=== PATIENT | female | born 1930 | race Asian ===

== ENCOUNTER 2016-09-21 11:02 | Outpatient (CLI) | payer OTHER ==
[~2016-09-21 11:02] MED LIST: CIPRO500 MG PO; DICL1GEL2 TOP; GLIP5TAB65 PO; LABETALOL100 MG OR; LISITAB PO; TRAM50TA PO
[2016-09-21 12:05] LABS: POTASSIUM 4.7 mmol/L (3.6-5.2)
[2016-09-21 12:13] LABS: PLATELET COUNT 182 K/uL (152-353)
[2017-01-30] MEDS ORDERED: VALSARTAN80 MG PO (17:06)
[2017-01-30] MEDS ORDERED: NIFE30TA PO (17:07)
[2017-01-30] MEDS ORDERED: SUCRALFATE1 GM OR (17:07)
[2017-01-30] MEDS ORDERED: PANTPAK PO (17:07)
[2017-01-30] MEDS ORDERED: HYDR25TA60 PO (17:08)
== END 2016-09-21 19:15 | disposition home or self-care (01) ==
LOC: LABW 11:02
PROVIDERS: Internal Medicine Hematology & Oncology
DX: D64.9 Anemia, unspecified (principal)
CPT/HCPCS: 36415; 80053; 82728; 85007; 85027

== ENCOUNTER 2016-09-21 13:27 | Observation (INO) | payer OTHER ==
[~2016-09-21] VITALS: Ht 149.9 cm; Wt 79.9 kg
[2016-09-21 13:45] VITALS: BP 125/25; TEMP 97.7
--- NOTE | 2016-09-21 17:30 | NUR ---
CALL RECEIVED FROM LAB STATING BLOOD READY TO BE TRANSFUSED
[2016-09-21 17:44] VITALS: BP 173/42; TEMP 97.9; Ht 149.9 cm; Wt 79.9 kg
--- NOTE | 2016-09-21 18:10 | NUR ---
#1 PRBCS INFUSING. PT SITTING IN WHEELCHAIR DOESN'T WANT TO MOVE TO BED OR ANOTHER CHAIR AT THIS TIME. DAUGHTER AND SON IN LAW IN WITH PT.
[2016-09-21 20:00] VITALS: BP 143/63; TEMP 98
[2016-09-22] VITALS: BP 210/51; TEMP 98.5
--- NOTE | 2016-09-22 00:05 | NUR ---
CALLED ER MD, DR FROST, REPORTED INCREASE IN SYSTOLIC BP DURING ADMINISTRATION. RECEIVED NEW ORDER FOR CLONIDINE 0.2 MG PO AND CONTINUE PRBC. PT STATES THAT AT HOME SHE IN ON A MAINTENANCE ANTIHYPERTENSIVE TID; AND, HER ONLY DOSE TODAY WAS EARLY A.M. HER HOME MEDS WERE NOT CONTINUED AT THIS TIME. WILL CONTINUE TO INFUSE PRBC AND ASSESS BP.
[2016-09-22 04:00] VITALS: BP 188/47; TEMP 98.3
--- NOTE | 2016-09-22 05:00 | NUR ---
PT CONTINUES TO REFUSE TO GET INTO BED. PT STATES, ADAMANT THAT, "I GET BLOOD; THEN, I CAN GO HOME." PT HAS REMAINED IN HER W/C ALL NIGHT. 3RD UNIT PRBC NEARING COMPLETION. WITH NO S/S OF ADVERSE REACTION.
[2016-09-22 08:00] VITALS: BP 152/48; TEMP 97.9
[2016-09-22 11:54] LABS: POTASSIUM 4.3 mmol/L (3.6-5.2)
[2016-09-22 12:00] VITALS: BP 190/51; TEMP 98.1
[2016-09-22 16:00] VITALS: BP 197/46; TEMP 98.4
--- NOTE | 2016-09-22 16:19 | NUR ---
IV SITE D/C'D WITH TIP INTACT AND SITE CARE DONE. D/C INSTRUCTIONS GIVEN AND PT VERBALIZES UNDERSTANDING. PT OUT VIA W/C PER MYSELF WITH NAD.
[2017-01-30] MEDS ORDERED: VALSARTAN80 MG PO (17:06)
[2017-01-30] MEDS ORDERED: NIFE30TA PO (17:07)
[2017-01-30] MEDS ORDERED: PANTPAK PO (17:07)
[2017-01-30] MEDS ORDERED: SUCRALFATE1 GM OR (17:07)
[2017-01-30] MEDS ORDERED: HYDR25TA60 PO (17:08)
== END 2016-09-22 16:15 | disposition home or self-care (01) ==
LOC: ED 13:27 → MED/SURG 15:54
PROVIDERS: Emergency Medicine; ADMIT Specialist
PROC: 30233N1 Transfusion of Nonautologous Red Blood Cells into Peripheral Vein, Percutaneous Approach (ICD-10-PCS; principal; 2016-09-21)
PROC: 30233N1 Transfusion of Nonautologous Red Blood Cells into Peripheral Vein, Percutaneous Approach (ICD-10-PCS; 2016-09-22)
DX: D64.89 Other specified anemias (principal); E11.9 Type 2 diabetes mellitus without complications
CPT/HCPCS: 36415; 36430; 80053; 82728; 83735; 85007; 85014; 85018; 85027; 86850; 86900; 86901; 86922; 96365; 96366; 99220; 99283; G0378; P9016

== ENCOUNTER 2016-11-15 09:52 | Outpatient (CLI) | payer OTHER ==
[2016-11-15 10:23] LABS: PLATELET COUNT 188 K/uL (152-353)
[2016-11-15 10:54] LABS: POTASSIUM 4.1 mmol/L (3.6-5.2)
[2017-01-30] MEDS ORDERED: VALSARTAN80 MG PO (17:06)
[2017-01-30] MEDS ORDERED: PANTPAK PO (17:07)
[2017-01-30] MEDS ORDERED: SUCRALFATE1 GM OR (17:07)
[2017-01-30] MEDS ORDERED: NIFE30TA PO (17:07)
[2017-01-30] MEDS ORDERED: HYDR25TA60 PO (17:08)
== END 2016-11-15 19:33 | disposition home or self-care (01) ==
LOC: LABW 09:52
PROVIDERS: Internal Medicine Hematology & Oncology
DX: D64.9 Anemia, unspecified (principal); R53.81 Other malaise
CPT/HCPCS: 36415; 80053; 85027

== ENCOUNTER 2017-01-13 03:12 | Inpatient (IN) | payer OTHER ==
[~2017-01-13] VITALS: Ht 149.9 cm; Wt 81.4 kg
[2017-01-13] VITALS (27 sets, daily range): BP systolic 101–209; BP diastolic 43–86; TEMP 97.9–98.7; Ht 149.9 cm; Wt 81.4 kg
[2017-01-13 03:43] LABS: PLATELET COUNT 195 K/uL (152-353)
[2017-01-13 03:50] LABS: POTASSIUM 4.3 mmol/L (3.6-5.2)
[2017-01-13 04:56] LABS: PARTIAL THROMBOPLASTIN TIME 22.8 SECONDS (24.5-33.6)
[2017-01-14] VITALS (27 sets, daily range): BP systolic 163–213; BP diastolic 47–99; TEMP 98.2–98.4
[2017-01-14 05:11] LABS: PLATELET COUNT 147 K/uL (152-353)
[2017-01-14 05:44] LABS: POTASSIUM 3.8 mmol/L (3.6-5.2)
[2017-01-15] VITALS (24 sets, daily range): BP systolic 176–239; BP diastolic 42–123; TEMP 97.6–99
[2017-01-15 05:28] LABS: PLATELET COUNT 147 K/uL (152-353)
[2017-01-15 05:42] LABS: POTASSIUM 3.5 mmol/L (3.6-5.2)
[2017-01-16] VITALS (19 sets, daily range): BP systolic 209–242; BP diastolic 55–89; TEMP 98.6–99.7
[2017-01-16 09:23] LABS: PLATELET COUNT 158 K/uL (152-353)
[2017-01-16 09:36] LABS: POTASSIUM 3.7 mmol/L (3.6-5.2)
[2017-01-17] VITALS (23 sets, daily range): BP systolic 111–247; BP diastolic 39–120; TEMP 98.2–101.7
[2017-01-17 06:12] LABS: PLATELET COUNT 146 K/uL (152-353)
[2017-01-18] VITALS (19 sets, daily range): BP systolic 122–182; BP diastolic 44–83; TEMP 97.7–99.9
[2017-01-18 04:49] LABS: PLATELET COUNT 140 K/uL (152-353)
[2017-01-18 05:17] LABS: POTASSIUM 3.4 mmol/L (3.6-5.2)
[2017-01-19 00:47] VITALS: BP 138/52; TEMP 99.1
[2017-01-19 04:39] LABS: PLATELET COUNT 160 K/uL (152-353)
[2017-01-19 04:59] LABS: POTASSIUM 3.6 mmol/L (3.6-5.2)
[2017-01-19 08:00] VITALS: BP 147/54; TEMP 97.5
[2017-01-19 16:00] VITALS: BP 119/52; TEMP 99.8
[2017-01-19 20:00] VITALS: BP 115/73; TEMP 99.1
[2017-01-20 00:15] VITALS: BP 132/51; TEMP 99.6
[2017-01-20 05:21] LABS: PLATELET COUNT 193 K/uL (152-353)
[2017-01-20 05:54] LABS: POTASSIUM 3.5 mmol/L (3.6-5.2)
[2017-01-20 08:01] VITALS: BP 120/44; TEMP 98.8
[2017-01-20 12:00] VITALS: BP 158/59; TEMP 97
[2017-01-20] MEDS ORDERED: LABETALOL100 MG OR (16:18)
[2017-01-30] MEDS ORDERED: VALSARTAN80 MG PO (17:06)
[2017-01-30] MEDS ORDERED: SUCRALFATE1 GM OR (17:07)
[2017-01-30] MEDS ORDERED: NIFE30TA PO (17:07)
[2017-01-30] MEDS ORDERED: PANTPAK PO (17:07)
[2017-01-30] MEDS ORDERED: HYDR25TA60 PO (17:08)
== END 2017-01-20 16:40 | disposition home or self-care (01) | DRG 378 ==
LOC: ED 03:12 → ICU 06:12 → MED/SURG 01-18 18:45
PROVIDERS: Emergency Medicine; ADMIT Specialist
PROC: 0DJ08ZZ Inspection of Upper Intestinal Tract, Via Natural or Artificial Opening Endoscopic (ICD-10-PCS; principal; 2017-01-13)
PROC: 30233N1 Transfusion of Nonautologous Red Blood Cells into Peripheral Vein, Percutaneous Approach (ICD-10-PCS; 2017-01-13)
PROC: 30233K1 Transfusion of Nonautologous Frozen Plasma into Peripheral Vein, Percutaneous Approach (ICD-10-PCS; 2017-01-13)
PROC: 0T9B70Z Drainage of Bladder with Drainage Device, Via Natural or Artificial Opening (ICD-10-PCS; 2017-01-13)
DX: K29.01 Acute gastritis with bleeding (principal); N39.0 Urinary tract infection, site not specified; B96.81 Helicobacter pylori [H. pylori] as the cause of diseases classified elsewhere; R31.9 Hematuria, unspecified; B96.89 Other specified bacterial agents as the cause of diseases classified elsewhere; D50.0 Iron deficiency anemia secondary to blood loss (chronic)
CPT/HCPCS: 36415; 36430; 80053; 81000; 82272; 82550; 82553; 82948; 82962; 83735; 84100; 84484; 85014; 85018; 85027; 85610; 85730; 86318; 86850; 86900; 86901; 86922; 87077; 87086; 87088; 87186; 93005; 93306; 94760; 96365; 96366; 99285; J0171; J0461; J1940; J1956; J2001; J2354; J2704; J2780; J3475; J3480; J3490; J7060; P9016; P9017